=== PATIENT | male | born 1955 ===

== ENCOUNTER 2024-02-16 05:09 | Day surgery (SDC) | payer OTHER ==
[2024-02-06 14:39] VITALS: BMI 34.4
[2024-02-16 08:31] VITALS: RESP 14; TEMP 97.2
[2024-02-16 08:59] VITALS: BP 114/74; PULSE 70
== END 2024-02-16 09:05 | disposition home or self-care (01) ==
LOC: JASU-ENDO 05:09
PROVIDERS: ATTEND Internal Medicine Gastroenterology
PROC: 0DJD8ZZ Inspection of Lower Intestinal Tract, Via Natural or Artificial Opening Endoscopic (ICD-10-PCS; principal; 2024-02-16 08:00)
DX: Z12.11 Encounter for screening for malignant neoplasm of colon (principal); K64.8 Other hemorrhoids; K57.30 Diverticulosis of large intestine without perforation or abscess without bleeding